=== PATIENT | male | born 1980 | race Caucasian/White ===

== ENCOUNTER 2019-12-13 13:44 | Inpatient (IN) | payer BC, OTHER ==
[2019-12-13 15:27] LABS: #Basophils 0.1 thou/uL (0.0-0.2); #Eosinphils 0.1 thou/uL (0.0-0.7); #Lymphocytes 2.3 thou/uL (1.20-3.40); #Monocytes 0.5 thou/uL (0.11-0.59); #Neutrophils 10.2 thou/uL (1.40-6.50); %Basophils 0.4 % (0.0-1.0); %Eosinophils 0.8 % (0.0-10.0); %Lymphocytes 17.6 % (21.0-51.0); %Monocytes 3.5 % (0.0-10.0); %Neutrophils 77.7 % (42.0-75.0); Hemoglobin 14.2 g/dL (14.0-18.0); Mean Corpuscular HGB CONC 34.4 g/dL (32.0-36.0); Mean Corpuscular Hemoglobin 30.1 pg (27.0-31.0); Mean Corpuscular Volume 87.6 fL (78.0-98.0); Mean Platelet Volume 6.2 fL (7.4-10.4); Platelet Count 422 thou/uL (130-400); RBC Distribution Width 12.3 % (11.5-14.5); Red Blood Cell (RBC) Count 4.72 mill/uL (4.70-6.10); White Blood Cell (WBC) Count 13.2 thou/uL (4.8-10.8)
--- NOTE | 2019-12-13 15:39 | RAD ---
RIGHT FOOT: 12/13/19 Three views. INDICATIONS: Foot pain. Tarsals appear unremarkable. Tarsometatarsal joints unremarkable. MTP joints unremarkable. IP joints unremarkable. No fracture or acute osseous abnormality identified. Extensive deformities at the MTP j oint. There is mild arterial calcifications seen which would suggest diabetes. IMPRESSION: No acute osseous abnormality identified. POS: AH
[2019-12-13 15:51] LABS: ALT (SGPT) 20 U/L (8-55); AST (SGOT) 21 U/L (5-34); Albumin 4.1 g/dL (3.5-5.0); Alkaline Phosphatase 76 U/L (40-110); Anion Gap 15 mmol/L (10-20); BUN (Urea Nitrogen) 11 mg/dL (8.9-20.6); Bilirubin, Total 0.6 mg/dL (0.2-1.2); Calc. Creatinine Clearance 0 mL/min (70-130); Calcium 9.8 mg/dL (7.8-10.44); Carbon Dioxide 24 mmol/L (22-29); Chloride 99 mmol/L (98-107); Estimated GFR-MDRD Greater than 90; Globulin 4.1 g/dL (2.4-3.5); Glucose 218 mg/dL (70-105); Potassium 4.7 mmol/L (3.5-5.1); Protein, Total 8.2 g/dL (6.0-8.3); Sodium 133 mmol/L (136-145)
[2019-12-13] MEDS ORDERED: cefTRIAXone\\ROCEPHIN 2 GM VIAL ONE (21:07)
[2019-12-13] MEDS ORDERED: Vancomycin 1 GM/200 ML BAG ONE (21:31)
[2019-12-13] MEDS ORDERED: Ondansetron PF 4 MG/2 ML Vial IVP PRN (23:26)
[2019-12-13] MEDS ORDERED: Ondansetron ODT 4 MG TAB SL PRN (23:26)
[2019-12-13] MEDS ORDERED: Sodium Chloride 0.9% 1,000 ML IV SCH (23:26)
[2019-12-13 23:49] VITALS: BMI 38.7
[2019-12-14] MEDS ORDERED: Dextrose 50% Abboject 50 ML SYRINGE SLOW IVP PRN (05:14)
[2019-12-14] MEDS ORDERED: Dextrose 5% in Water 1,000 ML IV PRN (05:14)
[2019-12-14] MEDS ORDERED: HumaLOG 300 UNITS/3 ML VIAL SC PRN (05:14)
[2019-12-14] MEDS ORDERED: Ondansetron PF 4 MG/2 ML Vial IVP PRN (05:14)
[2019-12-14] MEDS ORDERED: Acetaminophen 500 MG TAB PO PRN (05:14)
[2019-12-14] MEDS ORDERED: Ondansetron ODT 4 MG TAB PO PRN (05:14)
[2019-12-14] MEDS ORDERED: hydrALAZINE 20 MG/ML VIAL SLOW IVP PRN (05:14)
[2019-12-14] MEDS: HumaLOG 300 UNITS/3 ML VIAL SC PRN ×3 (06:12→18:02)
--- NOTE | 2019-12-14 07:22 | HP ---
PRIMARY CARE PROVIDER: Jamal Limon MD CHIEF COMPLAINT: Left foot ulcer. HISTORY OF PRESENT ILLNESS: This is a 39-year-old male, who presents to [facility] Emergency Room complaining of left foot/ankle ulceration, which he noticed in the last to 1 to 2 days. The patient states he noticed dried blood on his bathroom floor and when he investigated his foot with his phone, noticed he had an ulcer on the lateral aspect of the heel. The patient states he has decreased sensation of the left foot after a previous lumbar surgery, rendered him with sensory deficits. The patient does have limited mobility and uses a scooter or wheelchair for mobilization, but cannot pivot and ambulate short distances at home. The patient states he struck his left great toe on a bed frame several weeks ago and developed a small ulceration on the upper portion of the toe. The patient notes he has been taken care of the toe with local wound care. The patient did admit to associated fever over 101 degrees Fahrenheit. The patient took ibuprofen; however, the fever returned and decided to seek medical attention due to the ulcer on the left foot. In the emergency room, the patient underwent plain radiographs of the left ankle and foot showing no osseous abnormalities concerning for osteomyelitis. The patient received vancomycin and Rocephin in addition to intravenous normal saline. The patient was referred to the Hospitalist Service for further evaluation. PAST MEDICAL HISTORY: 1. Diabetes mellitus type 2. 2. Peripheral neuropathy. 3. Hypertension. 4. Hyperlipidemia. 5. Obstructive sleep apnea with nocturnal CPAP. PAST SURGICAL HISTORY: 1. Status post a lumbar surgery with resulting peripheral neuropathy. 2. Status post jaw surgery. CURRENT MEDICATIONS: 1. Metformin 500 mg p.o. at bedtime. 2. Losartan 50 mg p.o. daily. 3. Lipitor 80 mg p.o. daily. ALLERGIES: LISINOPRIL, MORPHINE SULFATE, PENICILLIN, SULFA. FAMILY HISTORY: Positive for hypertension. SOCIAL HISTORY: Resides in [place], [place]. Works for [email or web address] at [employer]. No current alcohol, tobacco, or illicit drug use. REVIEW OF SYSTEMS: CONSTITUTIONAL: Negative for weight loss or gain, ability to conduct usual activities. SKIN: Negative for rash, itching. EYES: Negative for double vision, pain. ENT/MOUTH: Negative for nose bleeding, neck stiffness, pain, tenderness. CARDIOVASCULAR: Negative for palpitations, dyspnea on exertion, orthopnea. RESPIRATORY: Negative for shortness of breath, wheezing, cough, hemoptysis, fever or night sweats. GASTROINTESTINAL: Negative for poor appetite, abdominal pain, heartburn, nausea, vomiting, constipation, or diarrhea. GENITOURINARY: Negative for urgency, frequency, dysuria, nocturia. MUSCULOSKELETAL: Negative for pain, swelling. NEUROLOGIC/PSYCHIATRIC: Negative for anxiety, depression. ALLERGY/IMMUNOLOGIC: Negative for skin rash, bleeding tendency. Otherwise negative except as stated per HPI. PHYSICAL EXAMINATION: VITAL SIGNS: Blood pressure 130/83, pulse 98, respiratory rate 18, temperature 98.2 degrees Fahrenheit, O2 saturation 96% on room air. GENERAL APPEARANCE: This is a 39-year-old male, alert and oriented x3, pleasant, responsive, in no acute distress. HEENT: Pupils are equal, round, reactive to light and accommodation. Extraocular muscles are intact. No scleral icterus. No conjunctival injection. Nares patent. OP is clear. Teeth in good repair. NECK: Supple. No cervical adenopathy. No thyromegaly. No carotid bruits. No JVD appreciated. Cervical spine with full active and passive range of motion. No meningeal signs noted. CHEST: Lungs are clear to auscultation bilaterally. CARDIOVASCULAR: S1 and S2 without noted murmur, rub, or gallop. ABDOMEN: Rounded, soft, nontender, and nondistended. Bowel sounds are positive in all 4 quadrants. There is no hepatosplenomegaly. No abdominal bruits. No rebound or guarding appreciated. EXTREMITIES: Warm and dry with fair turgor. Pulses palpable distally at the dorsalis pedis, posterior tibial, and popliteal arteries bilaterally. Generalized muscle atrophy of the lower extremities noted. Edema of the left foot noted with mild erythema of the left great toe with dystrophic nail. Large ulceration of the lateral calcaneus with dry eschar approximately 5 to 6 cm in greatest length and 3 cm width. Peripheral erythema noted. NEUROLOGIC: Cranial nerves 2 through 12 are grossly intact. No other focal or lateralizing signs appreciated. PERTINENT LABORATORY AND X-RAY FINDINGS: Sodium 133, potassium 4.7, chloride 99, CO2 of 24, BUN 11, creatinine 0.82, glucose 218, lactic acid level 0.9, calcium 9.8. LFTs within normal limits. CBC showed a white blood cell count of 13.2, hemoglobin 14, hematocrit 41, platelet count 422 with 78% neutrophils. Three views of the left foot dated 12/13/2019, showed no acute osseous abnormality. ASSESSMENT/PLAN: 1. Diabetic decubitus ulceration of the left foot. The patient will be admitted to the medical floor. Continue vancomycin 1.25 g IV q.12 hours with additional Rocephin 2 g IV daily. Wound care consult for local care. Consult General Surgery Service for evaluation and consideration for debridement. Limit offload pressure to the left foot while in bed. 2. Diabetes mellitus type 2 with peripheral neuropathy. Insulin sliding scale for reflexive coverage. Continue metformin. Accu-Cheks AC and at bedtime. ADA diet. 3. Hypertension. Resume losartan 50 mg p.o. daily. Serial blood pressure monitoring. 4. Chronic bilateral peripheral neuropathy. General fall risk precautions. See above as outlined in #1. 5. Prophylaxis. Hold SCDs due to distal peripheral neuropathy of the lower extremities. Lovenox 40 mg subcutaneously daily. Pepcid 20 mg p.o. b.i.d. 6. Code status is full. Surrogate medical decision maker is the patient's mother. Job ID: [id number]
[2019-12-14] MEDS: Atorvastatin Calcium 40 MG TAB PO SCH (08:53)
[2019-12-14] MEDS: Famotidine 20 MG TAB PO SCH ×2 (08:53→20:30)
[2019-12-14] MEDS: Enoxaparin Sodium 40 MG/0.4 ML SYRINGE SC SCH (08:53)
[2019-12-14] MEDS: Losartan 25 MG TAB PO SCH (08:53)
[2019-12-14] MEDS ORDERED: Vancomycin HCl 1.25 GM in Sodium Chloride 0.9% 250 ML 250 ML IVPB SCH (10:00)
--- NOTE | 2019-12-14 11:46 | MRI ---
MRI LEFT HINDFOOT: Date: 12/14/2019 PROVIDED CLINICAL HISTORY: Nonhealing ulcer at the lateral aspect of the left hindfoot. FINDINGS: Regional marrow signal appears normal. Alignment appears anatomic. Joint spaces appear preserved. No regional joint effusion is evident. The anterior extensor, medial flexor, anterior and posterior tibial, peroneal, and Achilles tendons a ppear intact. There is no significant regional tenosynovial fluid. The medial and lateral ankle ligaments appear intact. The courses of the regional major neurovascular structures appear unremarkable. There is preservation of normal fat signal intensity in the tarsal s inus. The plantar aponeurosis appears intact. There is generalized fatty infiltration of the intrinsic foot musculature. IMPRESSION: No MRI evidence for osteomyelitis. POS: JOHNATHON
--- NOTE | 2019-12-14 17:00 | PDOC.EVN ---
Event Note - Event Note Event Note: THe patient states he is feeling okay. He reported that he saw blood on the floor from his ulcer on his heel, however did not experience any pain because his foot is numb in that area. He reports having a hairline fracture in his left toe and was not ambulating on it much because of that General: vitals normal CV: RRR, no murmurs, rubs, gallops Lungs: CTAB Abdomen: + BS, soft, nontender, nondistended Ext: patient with necrotic appearing left heel ulcer appears dried. Left toe is painful to palpation. Left foot is swollen compared to right foot, not erythematous. Pulses are 2+ in the DP area. Plan: Left heel ulcer - continue vanc and ceftriaxone - foot X ray - repeat CBC Hypertension - continue losartan Diabetes - continue metformin
[2019-12-14 17:27] LABS: Hemoglobin 13.4 g/dL (14.0-18.0); Mean Corpuscular Hemoglobin 29.9 pg (27.0-31.0); Mean Corpuscular Volume 87.9 fL (78.0-98.0); Mean Platelet Volume 6.2 fL (7.4-10.4); Platelet Count 370 thou/uL (130-400); RBC Distribution Width 12.2 % (11.5-14.5); Red Blood Cell (RBC) Count 4.49 mill/uL (4.70-6.10); White Blood Cell (WBC) Count 10.1 thou/uL (4.8-10.8)
[2019-12-14 17:55] LABS: Anion Gap 13 mmol/L (10-20); BUN (Urea Nitrogen) 13 mg/dL (8.9-20.6); CRP (Inflammatory) 4.36 mg/dL (= or < 0.5); Calc. Creatinine Clearance 180 mL/min (70-130); Calcium 8.9 mg/dL (7.8-10.44); Carbon Dioxide 22 mmol/L (22-29); Chloride 103 mmol/L (98-107); Estimated GFR-MDRD Greater than 90; Glucose 198 mg/dL (70-105); Potassium 4.1 mmol/L (3.5-5.1); Sodium 134 mmol/L (136-145)
[2019-12-14] MEDS: Vancomycin 1.5 GRAM/300 ML BAG 1.5 GM in Premix Bag 1 BAG IVPB SCH (18:01)
--- NOTE | 2019-12-14 19:16 | CON ---
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 The patient had some problems with his left foot small toe, saw physician outpatient who prescribed a walking boot resulting in a wound in his left lateral heel area eschar. He presented to the hospital, admitted with cellulitis for this problem. He has an eschar on the plantar lateral aspect of the left foot proximally. Plain x-rays of the foot were unrevealing. The MRI of the foot was unrevealing for any deep problem. I have been asked to see him regarding this. The patient has been hospitalized since 12/12. By this time, cellulitis has resolved. Blood cultures today are negative. His white count was 13 on admission, 10 today. ALLERGIES: LISINOPRIL, MORPHINE, PENICILLIN, AND SULFA. TOBACCO: None. ALCOHOL: None. MEDICATIONS: At home: 1. Losartan. 2. Metformin. 3. Atorvastatin. PAST SURGICAL HISTORY: The patient states he had an umbilical cord wrapped around his neck at resulting in some problems requiring mandibular surgery. He had lumbar surgery in 1997, resulted in some decreased sensation of his foot and chronic problems. He is morbidly obese, 5 feet 5 inches, 233 pounds, 38 BMI. PAST MEDICAL HISTORY: Diabetes mellitus, hypertension, obesity, neuropathy, both from diabetic and lumbar problems in the past. The patient is single. REVIEW OF SYSTEMS: Ten-point noncontributory. PHYSICAL EXAMINATION: VITAL SIGNS: Height 5 feet 5 inches, 233 pounds, 38 BMI. Temperature 98.4, pulse 87, and blood pressure 148/87. HEAD, EARS, EYES, NOSE, AND THROAT: Unremarkable. LUNGS: Clear to auscultation. CARDIAC: Regular rate and rhythm without murmur or gallop. ABDOMEN: Soft, obese, and nontender. EXTREMITIES: Palpable femoral popliteal pedal pulses throughout. On the left lateral foot, there is an eschar approximately 5 x 3 cm. There is no evidence of fluctuance. There is no cellulitis. It appears to be flat without fluctuation. It is not very tender. LABORATORY DATA: White count 10 and hemoglobin 13. Basic metabolic profile normal. BUN 13 and creatinine 0.83. ASSESSMENT AND PLAN: Eschar, left foot secondary to neuropathy and use of a walking boot. We would advise offload, prevent pressure, washing the wound daily with soap and water. I will be glad to see him as an outpatient. Currently, surgical intervention is not necessary. The patient can be discharged home if oral antibiotics are desired can be prescribed, otherwise did not need prolonged antibiotics. I would see him in my office in 2 to 3 weeks, sooner as needed. I will see him as needed this hospitalization. Please call if necessary. Job ID: [id number]
[2019-12-14] MEDS ORDERED: cefTRIAXone\\ROCEPHIN 2 GM in Sodium Chloride 0.9% 100 ML IVPB SCH (21:00)
[2019-12-14] MEDS ORDERED: metFORMIN XR 500 MG TAB PO SCH (21:00)
[2019-12-15] MEDS: Vancomycin 1.5 GRAM/300 ML BAG 1.5 GM in Premix Bag 1 BAG IVPB SCH ×2 (02:16→09:14)
[2019-12-15 05:48] LABS: #Basophils 0.1 thou/uL (0.0-0.2); #Eosinphils 0.2 thou/uL (0.0-0.7); #Lymphocytes 2.5 thou/uL (1.20-3.40); #Monocytes 0.5 thou/uL (0.11-0.59); #Neutrophils 6.2 thou/uL (1.40-6.50); %Basophils 0.6 % (0.0-1.0); %Eosinophils 1.7 % (0.0-10.0); %Lymphocytes 26.2 % (21.0-51.0); %Monocytes 5.2 % (0.0-10.0); %Neutrophils 66.3 % (42.0-75.0); Hemoglobin 12.2 g/dL (14.0-18.0); Mean Corpuscular HGB CONC 32.4 g/dL (32.0-36.0); Mean Corpuscular Hemoglobin 28.6 pg (27.0-31.0); Mean Corpuscular Volume 88.3 fL (78.0-98.0); Mean Platelet Volume 6.1 fL (7.4-10.4); Platelet Count 367 thou/uL (130-400); RBC Distribution Width 12.3 % (11.5-14.5); Red Blood Cell (RBC) Count 4.27 mill/uL (4.70-6.10); White Blood Cell (WBC) Count 9.4 thou/uL (4.8-10.8)
[2019-12-15] MEDS: HumaLOG 300 UNITS/3 ML VIAL SC PRN ×2 (05:57→12:50)
[2019-12-15 06:12] LABS: Anion Gap 12 mmol/L (10-20); BUN (Urea Nitrogen) 11 mg/dL (8.9-20.6); Calc. Creatinine Clearance 197 mL/min (70-130); Calcium 8.9 mg/dL (7.8-10.44); Carbon Dioxide 23 mmol/L (22-29); Estimated GFR-MDRD Greater than 90; Glucose 167 mg/dL (70-105); Potassium 4.2 mmol/L (3.5-5.1); Sodium 135 mmol/L (136-145)
[2019-12-15 06:18] LABS: Chloride 104 mmol/L (98-107)
[2019-12-15] MEDS: Losartan 25 MG TAB PO SCH (09:14)
[2019-12-15] MEDS: Famotidine 20 MG TAB PO SCH (09:14)
[2019-12-15] MEDS: Atorvastatin Calcium 40 MG TAB PO SCH (09:14)
[2019-12-15] MEDS: Enoxaparin Sodium 40 MG/0.4 ML SYRINGE SC SCH (09:14)
[2019-12-15 09:17] LABS: Vancomycin, Trough 34.2 ug/mL
[2019-12-15 11:46] LABS: SARS-CoV-2 MS2 Positive; SARS-CoV-2 N Gene Negative; SARS-CoV-2 S Gene Negative; SARS-CoV-2 by NAA Not Detected (NotDetected); SARS-CoV-2 orf1ab Negative
[2019-12-15 12:40] VITALS: BP 147/97; TEMP 98.3
--- NOTE | 2019-12-16 03:36 | DIS ---
DATE OF ADMISSION: 12/13/2019 DATE OF DISCHARGE: 12/15/2019 DISCHARGE DIAGNOSES: 1. Diabetic foot ulcer. 2. Leukocytosis. 3. Anemia. CONSULTATIONS: General Surgery with Dr. Barger. PROCEDURES: None. BRIEF HISTORY OF PRESENT ILLNESS: This is a 39-year-old male with a past medical history of diabetes, who presented to the emergency room when he noticed blood on his bathroom floor from an ulcer on his foot. Patient reports decreased sensation of the left foot. He was noted to have a fever of over 101. He had a left foot x-ray, which showed no abnormalities. Patient got vancomycin, Rocephin, and was admitted for further workup. HOSPITAL COURSE: 1. Diabetic foot ulcer: The patient underwent an MRI of his left foot, which showed evidence of osteomyelitis. He was given vancomycin and ceftriaxone. The following day, his heel ulcer was noted to be completely dry. He does have evidence of dry gangrene. He was seen by Dr. Barger, who recommended just rinsing the area with soap and water. Dr. Barger recommended the patient offload with a boot. Currently, he is not showing any signs of cellulitis. I advised that the patient can take clindamycin and Levaquin if he starts developing any signs of cellulitis including fever, worsening swelling, severe pain. He can follow up in Dr. Barger's office in 2-3 weeks. 2. Anemia: Patient's hemoglobin was 12.2. This can be worked up further as an outpatient. He had no signs of bleeding. 3. Leukocytosis: The patient presented with white count of 13.2, this resolved and was 9.4 at the time of discharge. COVID PCR was negative. DISCHARGE PHYSICAL EXAMINATION: VITAL SIGNS: Temperature 98.3, heart rate 91, respiratory rate 18, O2 saturation 98% on room air, blood pressure 147/97. GENERAL: Patient is alert, awake, oriented x3. CVS: Regular rate and rhythm with no murmurs, rubs, or gallops. LUNGS: Clear to auscultation bilaterally. ABDOMEN: Positive bowel sounds, soft, nontender, nondistended. EXTREMITIES: Patient has a dry gangrene ulcer on the left heel. There is no pus coming out of it. He does have some dry skin, which he can apply lotion to. PERTINENT LABS: 12/14 CBC: WBC 9.4, Hb 12.2, HCt 37.7, platelet 3677/24: BMP: mild hyponatremia with sodium 134 COVID PCR: not detected PERTINENT IMAGING: Foot X ray : No acute abnormality Lower extremity MRI: fatty infiltration of intrinsic foot musculature. No osteomyelitis. DISCHARGE CONDITION: Stable. ACTIVITY: As tolerated. DIET: Diabetic diet. DISCHARGE MEDICATIONS: 1. Clindamycin 450 mg p.o. q.6 hours, quantity 84. 2. Levaquin 750 mg p.o. daily, quantity 7. 3. Metformin 500 mg p.o. q.h.s. 4. Losartan 50 mg p.o. daily. 5. Atorvastatin 40 mg p.o. daily. DISCHARGE INSTRUCTIONS: Patient is to follow up with his PCP in a week. He should consider taking antibiotics if he develops any signs of cellulitis. Job ID: [id number] [id number]
== END 2019-12-15 13:45 | disposition home or self-care (01) | DRG 300 ==
LOC: ERS 13:44 → T4-A 21:57 → OBSVTOIN 21:57
PROVIDERS: ADMIT Family Medicine; ATTEND Family Medicine
DX: E11.52 Type 2 diabetes mellitus with diabetic peripheral angiopathy with gangrene (principal); L97.429 Non-pressure chronic ulcer of left heel and midfoot with unspecified severity; M86.172 Other acute osteomyelitis, left ankle and foot; I96 Gangrene, not elsewhere classified; E87.1 Hypo-osmolality and hyponatremia; Z20.828 Contact with and (suspected) exposure to other viral communicable diseases; E11.42 Type 2 diabetes mellitus with diabetic polyneuropathy; E11.621 Type 2 diabetes mellitus with foot ulcer; E78.5 Hyperlipidemia, unspecified; I10 Essential (primary) hypertension; E66.01 Morbid (severe) obesity due to excess calories; D72.829 Elevated white blood cell count, unspecified; D64.9 Anemia, unspecified; E11.69 Type 2 diabetes mellitus with other specified complication; G47.33 Obstructive sleep apnea (adult) (pediatric); Z88.0 Allergy status to penicillin; Z99.3 Dependence on wheelchair; Z88.2 Allergy status to sulfonamides; Z88.5 Allergy status to narcotic agent; Z88.8 Allergy status to other drugs, medicaments and biological substances; Z79.84 Long term (current) use of oral hypoglycemic drugs; Z79.899 Other long term (current) drug therapy; Z99.89 Dependence on other enabling machines and devices; Z68.38 Body mass index [BMI] 38.0-38.9, adult
CPT/HCPCS: 36415; 36416; 80048; 80053; 80202; 83605; 85025; 85027; 85652; 86140; 87040; 87635; 96361; 96365; 96367; G0378; J0696; J1650; J3370; J3490; J7050; U0003

== ENCOUNTER 2022-11-29 09:18 | Inpatient (IN) | payer BC ==
[2022-11-29 10:14] LABS: #Monocytes 0.9 thou/uL (0.11-0.59); #Neutrophils 13.4 thou/uL (1.40-6.50); %Basophils 0.2 % (0.0-1.0); %Eosinophils 0.3 % (0.0-10.0); %Lymphocytes 9.8 % (21.0-51.0); %Monocytes 5.6 % (0.0-10.0); %Neutrophils 83.7 % (42.0-75.0); Hemoglobin 12.5 g/dL (14.0-18.0); Mean Corpuscular HGB CONC 35.1 g/dL (32.0-36.0); Mean Corpuscular Hemoglobin 30.6 pg (27.0-31.0); Mean Corpuscular Volume 87.3 fl (78.0-98.0); Mean Platelet Volume 8.9 fL (7.4-10.4); Platelet Count 220 10x3/uL (130-400); RBC Distribution Width 12.8 % (11.5-14.5); Red Blood Cell (RBC) Count 4.08 mill/uL (4.70-6.10)
[2022-11-29] MEDS ORDERED: Pantoprazole 40 MG VIAL ONE (10:31)
[2022-11-29] MEDS ORDERED: Ondansetron PF 4 MG/2 ML Vial ONE ×2 (10:31→17:11)
[2022-11-29 10:37] LABS: ALT (SGPT) 31 U/L (8-55); AST (SGOT) 20 U/L (5-34); Albumin 3.7 g/dL (3.5-5.0); Alkaline Phosphatase 58 U/L (40-110); Anion Gap 16 mmol/L (10-20); BUN (Urea Nitrogen) 17 mg/dL (8.9-20.6); Bilirubin, Total 1.6 mg/dL (0.2-1.2); Calc. Creatinine Clearance 0 mL/min (70-130); Calcium 9.7 mg/dL (7.8-10.44); Carbon Dioxide 22 mmol/L (22-29); Chloride 99 mmol/L (98-107); Estimated GFR 112; Globulin 3.1 g/dL (2.4-3.5); Glucose 263 mg/dL (70-105); Lipase 12 U/L (8-78); Potassium 3.8 mmol/L (3.5-5.1); Protein, Total 6.8 g/dL (6.0-8.3); Sodium 133 mmol/L (136-145)
[2022-11-29] MEDS ORDERED: Acetaminophen 500 MG TAB ONE (12:38)
[2022-11-29] MEDS ORDERED: Ondansetron PF 4 MG/2 ML Vial IVP PRN (13:03)
[2022-11-29] MEDS ORDERED: Acetaminophen 325 MG TAB PO PRN (13:03)
[2022-11-29] MEDS ORDERED: HYDROmorphone 0.5 MG/0.5 ML SYRINGE SLOW IVP PRN (13:08)
[2022-11-29] MEDS ORDERED: Dextrose 5% in Water 1,000 ML IV PRN (13:14)
[2022-11-29] MEDS ORDERED: HumaLOG 300 UNITS/3 ML VIAL SC PRN (13:14)
[2022-11-29] MEDS ORDERED: Dextrose 50% Abboject 50 ML SYRINGE SLOW IVP PRN (13:14)
[2022-11-29] MEDS ORDERED: Glucagon 1 MG/ML KIT IM PRN (13:14)
[2022-11-29] MEDS ORDERED: HYDROcodone/Acetaminophen 5/325 mg Tablet PO PRN (13:35)
[2022-11-29 14:38] VITALS: BMI 40.1
[2022-11-29] MEDS: Sodium Chloride 0.9% 1,000 ML IV SCH ×2 (14:38→20:52)
[2022-11-29] MEDS ORDERED: cefTRIAXone\\ROCEPHIN 2 GM in Sodium Chloride 0.9% 100 ML IVPB SCH (16:00)
[2022-11-29 16:01] LABS: Bacteria/HPF None Seen HPF (None Seen); Bilirubin Negative (Negative); Blood, Urine Negative (Negative); CAUTI Indications for Culture Pelvic or flank pain; Clarity Clear (Clear); Glucose, Urine (Dipstick) Greater than 1000 mg/dL (Negative); Ketone, Urine 60 mg/dL (Negative); Leukocyte Negative Leu/uL (Negative); Mucous/LPF Rare LPF (<2+); Nitrite Negative (Negative); Protein, Urine (Dipstick) 30 mg/dL (Neg-Trace); RBC/HPF 0-3 HPF (0-3); Specific Gravity, Urine 1.019 (1.002-1.036); Squamous Epithelial None Seen HPF (0-3); Urobilinogen Normal mg/dL (Less than 2); WBC/HPF 0-3 HPF (0-3); pH, Urine 5.5 (5.0-9.0)
[2022-11-29 16:02] LABS: Urine Culture Reflex No No
[2022-11-29] MEDS ORDERED: Bupivacaine HCl 0.5%/Epinephrine 1:200,000/PF 30 ml Vial ONE (16:21)
[2022-11-29] MEDS ORDERED: traMADol HCl 50 MG TAB PO PRN (16:22)
[2022-11-29 16:46] LABS: INR-International Normal Ratio 1.3; Prothrombin Time 16.3 sec (12.0-14.7)
[2022-11-29 16:47] LABS: PTT 40.9 sec (22.9-36.1)
[2022-11-29] MEDS ORDERED: cefTRIAXone (ROCEPHIN) 2 GM VIAL ONE (16:51)
[2022-11-29] MEDS ORDERED: Sodium Chloride 0.9% 100 ML ONE (16:51)
[2022-11-29] MEDS ORDERED: Acetaminophen 325 MG TAB PO SCH (17:00)
[2022-11-29] MEDS ORDERED: Fentanyl 250 MCG/5 ML VIAL ONE (17:08)
[2022-11-29] MEDS ORDERED: Rocuronium Bromide 10 MG/ML (10ML VIAL) ONE (17:11)
[2022-11-29] MEDS ORDERED: PROPOFOL 200 MG/20 ML VIAL ONE (17:11)
[2022-11-29] MEDS ORDERED: NEOSTIGMINE 3 MG/3 ML SYR 3 MG/3 ML SYRINGE ONE (17:11)
[2022-11-29] MEDS ORDERED: Glycopyrrolate 0.2 MG/ML 5 ML SYRINGE ONE (17:11)
[2022-11-29] MEDS ORDERED: Lidocaine 1% PF 5 ML VIAL ONE (17:11)
[2022-11-29] MEDS ORDERED: Ondansetron HCl/PF 4 MG/2 ML Vial IVP PRN (19:04)
[2022-11-29] MEDS ORDERED: Promethazine HCl 25 MG/ML VIAL IM PRN (19:04)
[2022-11-29] MEDS ORDERED: Ketorolac Tromethamine 30 MG/ML VIAL ONE (19:09)
[2022-11-29] MEDS ORDERED: fentaNYL 50 mcg/mL 1 mL Vial ONE (19:09)
[2022-11-29] MEDS ORDERED: Sucralfate 1 GM/10 ML UDCUP PO SCH (19:30)
[2022-11-29] MEDS: Acetaminophen 325 MG TAB PO SCH (20:45)
[2022-11-29] MEDS: traMADol HCl 50 MG TAB PO SCH (20:51)
[2022-11-30] MEDS: Acetaminophen 325 MG TAB PO SCH ×3 (00:20→13:43)
[2022-11-30] MEDS: traMADol HCl 50 MG TAB PO SCH ×3 (00:22→13:43)
[2022-11-30] MEDS: Sodium Chloride 0.9% 1,000 ML IV SCH ×3 (00:27→12:16)
[2022-11-30 07:27] LABS: #Eosinphils 0.1 thou/uL (0.0-0.7); #Monocytes 0.8 thou/uL (0.11-0.59); #Neutrophils 10.3 thou/uL (1.40-6.50); %Basophils 0.2 % (0.0-1.0); %Eosinophils 0.5 % (0.0-10.0); %Lymphocytes 11.9 % (21.0-51.0); %Monocytes 6.2 % (0.0-10.0); %Neutrophils 80.6 % (42.0-75.0); Hemoglobin 10.8 g/dL (14.0-18.0); Mean Corpuscular HGB CONC 34.1 g/dL (32.0-36.0); Mean Corpuscular Hemoglobin 30.2 pg (27.0-31.0); Mean Corpuscular Volume 88.5 fl (78.0-98.0); Mean Platelet Volume 9.1 fL (7.4-10.4); Platelet Count 199 10x3/uL (130-400); RBC Distribution Width 13.1 % (11.5-14.5); Red Blood Cell (RBC) Count 3.58 mill/uL (4.70-6.10); White Blood Cell (WBC) Count 12.8 10x3/uL (4.8-10.8)
[2022-11-30 08:05] LABS: ALT (SGPT) 42 U/L (8-55); AST (SGOT) 35 U/L (5-34); Albumin 3.2 g/dL (3.5-5.0); Alkaline Phosphatase 52 U/L (40-110); Anion Gap 14 mmol/L (10-20); BUN (Urea Nitrogen) 18 mg/dL (8.9-20.6); Bilirubin, Total 0.7 mg/dL (0.2-1.2); Calc. Creatinine Clearance 197 mL/min (70-130); Calcium 8.1 mg/dL (7.8-10.44); Carbon Dioxide 18 mmol/L (22-29); Chloride 107 mmol/L (98-107); Estimated GFR 117; Globulin 2.8 g/dL (2.4-3.5); Glucose 149 mg/dL (70-105); Potassium 3.7 mmol/L (3.5-5.1); Sodium 135 mmol/L (136-145)
[2022-11-30] MEDS: metroNIDAZOLE 500 MG TAB PO SCH ×2 (09:06→14:35)
[2022-11-30] MEDS ORDERED: Polyethylene Glycol 3350 17 GM Packet PO PRN (10:50)
[2022-11-30 17:22] VITALS: BP 119/62; TEMP 97.8
== END 2022-11-30 18:17 | disposition home or self-care (01) | DRG 854 ==
LOC: ERS 09:18 → T4-B 12:40
PROVIDERS: ADMIT Internal Medicine; ATTEND Hospitalist
PROC: 0FT44ZZ Resection of Gallbladder, Percutaneous Endoscopic Approach (ICD-10-PCS; principal; 2022-11-29)
PROC: 3E03329 Introduction of Other Anti-infective into Peripheral Vein, Percutaneous Approach (ICD-10-PCS; 2022-11-29)
DX: A41.9 Sepsis, unspecified organism (principal); K81.0 Acute cholecystitis; I10 Essential (primary) hypertension; E78.5 Hyperlipidemia, unspecified; E11.9 Type 2 diabetes mellitus without complications; G47.33 Obstructive sleep apnea (adult) (pediatric); G89.4 Chronic pain syndrome; Z98.890 Other specified postprocedural states; Z88.0 Allergy status to penicillin; Z88.2 Allergy status to sulfonamides; Z88.8 Allergy status to other drugs, medicaments and biological substances; Z79.84 Long term (current) use of oral hypoglycemic drugs; Z79.899 Other long term (current) drug therapy
CPT/HCPCS: 36415; 36416; 76705; 80053; 81001; 83690; 85025; 85610; 85730; 86850; 86900; 86901; 88304; 96361; 96374; 96375; C1889; C9113; J0696; J1885; J2405; J2704; J3010; J3490; J7050